=== PATIENT | male | born 1950 | race Caucasian/White ===

== ENCOUNTER → 2016-12-20 | Outpatient (CLI) | payer BC, MEDICARE ==
[~2016-12-20] MED LIST: ASPIRIN EC325 MG PO; ATENOLOL25 MG PO; COLESTIPOL HYDRO1 GM PO; FLOMAX 0.4MG C0.4 MG PO; JANUMET XR1 TER PO; KEFLEX 500MG.500 MG PO; LEVOTHYROXIN0.025 M3 PO; LIPOFLAVONOID1 TAB PO; METFORMIN 500M500 MG PO; NITROGLYCERIN0.4 MG SL; NORCO 325 MG-51 TAB PO; ZETIA10 MG PO
--- NOTE | 2016-12-20 12:47 | RADIOLOGY REPORT PS360 ---
[id number] VIEWS ORDERING PHYSICIAN : SHAD Morrison PATIENT AGE: 66 years GENDER: Male INDICATION: LEFT SIDED RIB PAIN=INJURY 3 DAYS AGO Injured 3 days ago. A bullsmashed his gate it injured chest TECHNIQUE: Multiple oblique views left RIBS along with AP chest above and below diaphragm COMPARISON: CT chest 08/22/2016 portable chest from 2011 and 2 view chest 11 8 routine FINDINGS No acute fractures are identified. There is a small left pleural effusion with blunting at the left CP angle.-This appears reflect chronic feature which was seen on 2013 CXR. Likely note some minor pleural thickening at the left CP angle on CT chest in 2016 with small area of calcification left CP angle. On that CT study. If chest pain persist and may warrant follow-up.. No pneumothorax evident. A subtle undulation left ninth rib may reflect old fracture but unimpressive Right lung appears clear heart john and mediastinal structures unremarkable. Generous marginal osteophytes with developing Degenerative changes throughout thoracic spine IMPRESSION: --------- No acute rib fractures evident. Blunting left CP angle and mild pleural thickening lower left chest-most likely reflecting chronic pleural changes.. Has been been seen on previous studies No acute findings. No significant new findings at left chest.
== END ==
LOC: RAD 11:07
DX: R07.81 Pleurodynia (principal)

== ENCOUNTER → 2017-01-09 | Outpatient (CLI) | payer BC, MEDICARE | LOC: LAB 15:26 | DX: E83.119 Hemochromatosis, unspecified (principal) ==

== ENCOUNTER → 2017-10-27 | Outpatient (CLI) | payer BC, MEDICARE | LOC: RAD 12:01 | DX: E83.119 Hemochromatosis, unspecified (principal) ==